=== PATIENT | female | born 2005 | race Caucasian/White ===

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

== ENCOUNTER → 2024-02-04 | Outpatient (CLI) | payer OTHER ==
[~2024-02-04] MED LIST changes: +ALBU2.5V10 INH; +CEFD1CAP9 PO; -CEFD300C41 PO; -KLON0.5T PO; +KLON0.5T8 PO; +PRENTAB9 PO
[2024-02-04 18:12] LABS: BASO % 0.4 % (0.0-1.0); EOS # 0.1 10^3/uL (0.0-0.5); EOS % 0.5 % (0.0-3.0); HEMATOCRIT 39.4 % (36.0-47.0); HEMOGLOBIN 13.2 g/dl (12.0-15.5); LYMPH # 2.6 10^3/uL (1.5-5.0); LYMPH % 27.7 % (24.0-44.0); MEAN CORPUSCULAR HEMOGLOBIN 30.1 pg (27.0-33.0); MEAN CORPUSCULAR HGB CONC 33.5 g/dl (32.0-36.5); MONO # 0.8 10^3/uL (0.0-0.8); MONO % 8.5 % (2.0-8.0); NEUTROPHILS # 5.9 10^3/uL (1.5-8.5); NEUTROPHILS % 62.5 % (36.0-66.0); PLATELET COUNT, AUTOMATED 332 10^3/uL (150-450); RED BLOOD COUNT 4.38 10^6/uL (4.00-5.40); WHITE BLOOD COUNT 9.5 10^3/uL (4.0-10.0)
[2024-02-04 18:27] LABS: HEMOGLOBIN A1c 4.9 % (4.0-6.0)
[2024-02-04 18:42] LABS: ALBUMIN 3.8 G/DL (3.2-5.2); ALKALINE PHOSPHATASE 74 U/L (46-116); ALT/SGPT 29 U/L (7.0-40); AST/SGOT 19 U/L (<34); BILIRUBIN,TOTAL 0.2 MG/DL (0.3-1.2); BLOOD UREA NITROGEN 8 MG/DL (9-23); CALCIUM LEVEL 9.7 MG/DL (8.5-10.1); CARBON DIOXIDE LEVEL 30 MMOL/L (20-31); CHLORIDE LEVEL 104 MMOL/L (98-107); CHOLESTEROL LEVEL 150 MG/DL (<200); CHOLESTEROL RISK RATIO 3.57 (<5); GLUCOSE, FASTING 72 MG/DL (60-100); HDL CHOLESTEROL 41.9 MG/DL (>40); LDL CHOLESTEROL 42.7 MG/DL (<100); NON-HDL-C 108.1 MG/DL; POTASSIUM SERUM 4.5 MMOL/L (3.5-5.1); SODIUM LEVEL 139 MMOL/L (136-145); TRIGLYCERIDES LEVEL 327 MG/DL (<150)
[2024-02-04 18:44] LABS: FREE T4 0.85 NG/DL (0.83-1.43); THYROID STIMULATING HORMONE 0.934 uIU/ML (0.48-4.17); TOTAL 25(OH) VITAMIN D 18.7 NG/ML (20.0-100.0)
== END ==
LOC: M PLALAB 15:49
PROVIDERS: ATTEND Physician Assistant
DX: Z00.00 Encounter for general adult medical examination without abnormal findings (principal); E66.9 Obesity, unspecified

== ENCOUNTER → 2025-01-23 | Outpatient (CLI) | payer OTHER ==
[~2025-01-23] MED LIST changes: +NAPR-1405 PO; -NAPR500T6 PO; +ONDA-282 PO; -ONDA4TAB6 PO
[2025-01-23 15:35] LABS: BASO % 0.4 % (0.0-1.0); EOS % 0.3 % (0.0-3.0); HEMATOCRIT 40.4 % (36.0-47.0); HEMOGLOBIN 13.2 g/dl (12.0-15.5); LYMPH # 2.7 10^3/uL (1.5-5.0); LYMPH % 24.9 % (24.0-44.0); MEAN CORPUSCULAR HEMOGLOBIN 29.5 pg (27.0-33.0); MEAN CORPUSCULAR HGB CONC 32.7 g/dl (32.0-36.5); MEAN CORPUSCULAR VOLUME 90.4 fl (80.0-96.0); MONO # 0.7 10^3/uL (0.0-0.8); MONO % 6.8 % (2.0-8.0); NEUTROPHILS # 7.2 10^3/uL (1.5-8.5); NEUTROPHILS % 67.2 % (36.0-66.0); PLATELET COUNT, AUTOMATED 327 10^3/uL (150-450); RED BLOOD COUNT 4.47 10^6/uL (4.00-5.40); WHITE BLOOD COUNT 10.7 10^3/uL (4.0-10.0)
[2025-01-23 15:39] LABS: ALBUMIN 3.8 G/DL (3.2-5.2); ALKALINE PHOSPHATASE 87 U/L (35-104); ALT/SGPT 17 U/L (7.0-40); AST/SGOT 14 U/L (<34); BILIRUBIN,TOTAL 0.3 MG/DL (0.3-1.2); BLOOD UREA NITROGEN 8 MG/DL (9-23); CALCIUM LEVEL 9.6 MG/DL (8.5-10.1); CARBON DIOXIDE LEVEL 28 MMOL/L (20-31); CHLORIDE LEVEL 107 MMOL/L (98-107); CREATININE FOR GFR 0.56 MG/DL (0.55-1.30); GLOMERULAR FILTRATION RATE > 90.0 (>60); GLUCOSE, FASTING 84 MG/DL (60-100); POTASSIUM SERUM 4.5 MMOL/L (3.5-5.1); SODIUM LEVEL 144 MMOL/L (136-145)
[2025-01-23 15:52] LABS: HEMOGLOBIN A1c 5.2 % (4.0-6.0)
== END ==
LOC: M PLALAB 12:07
PROVIDERS: ATTEND Student in an Organized Health Care Education/Training Program
DX: Z01.818 Encounter for other preprocedural examination (principal)

== ENCOUNTER 2025-02-27 18:14 | Emergency (ER) | payer MEDICAID, OTHER ==
[~2025-02-27] VITALS: Ht 160 cm; Wt 117.0 kg
[2025-02-27] MEDS ORDERED: ENOX40IN3 INJ (18:28)
[2025-02-27] MEDS ORDERED: OMEP40CA5 PO (18:28)
[2025-02-27] MEDS ORDERED: METH-1164 (18:28)
[2025-02-27] MEDS ORDERED: DULO1CAP6 PO (18:28)
[2025-02-27] MEDS ORDERED: CLON-589 PO (18:28)
[2025-02-27] MEDS ORDERED: ONDA-83 PO (18:28)
[2025-02-27] MEDS ORDERED: ETON68IM SC (18:30)
[2025-02-27] MEDS: GASTROGRAFIN SOLUTION 30ML PO SCH (19:39)
[2025-02-27 19:42] LABS: BASO % 0.6 % (0.0-1.0); EOS # 0.1 10^3/uL (0.0-0.5); EOS % 1.6 % (0.0-3.0); HEMATOCRIT 38.4 % (36.0-47.0); HEMOGLOBIN 12.9 g/dl (12.0-15.5); LYMPH % 38.8 % (24.0-44.0); MEAN CORPUSCULAR HEMOGLOBIN 30.1 pg (27.0-33.0); MEAN CORPUSCULAR HGB CONC 33.6 g/dl (32.0-36.5); MEAN CORPUSCULAR VOLUME 89.5 fl (80.0-96.0); MONO # 0.6 10^3/uL (0.0-0.8); NEUTROPHILS # 2.4 10^3/uL (1.5-8.5); NEUTROPHILS % 47.8 % (36.0-66.0); PLATELET COUNT, AUTOMATED 239 10^3/uL (150-450); RED BLOOD COUNT 4.29 10^6/uL (4.00-5.40)
[2025-02-27] MEDS: METOCLOPRAMIDE INJ 10MG/2ML VIAL IV ONE (19:44)
[2025-02-27] MEDS: NS (Normal Saline) 0.9% 1,000 ML IV ONE (19:44)
[2025-02-27] MEDS: ACETAMINOPHEN *IV* 1,000 MG in IV 1 EA IV ONE (19:47)
[2025-02-27 20:07] LABS: HCG, SERUM QUALITATIVE NEGATIVE (NEGATIVE); LIPASE 63 U/L (12-53)
[2025-02-27 20:17] LABS: ALBUMIN 3.8 G/DL (3.2-5.2); ALKALINE PHOSPHATASE 73 U/L (35-104); ALT/SGPT 27 U/L (7.0-40); AST/SGOT 22 U/L (<34); BILIRUBIN,DIRECT < 0.1 MG/DL (<0.4); BILIRUBIN,TOTAL 0.2 MG/DL (0.3-1.2); BLOOD UREA NITROGEN < 5 MG/DL (9-23); CALCIUM LEVEL 9.2 MG/DL (8.5-10.1); CARBON DIOXIDE LEVEL 27 MMOL/L (20-31); CHLORIDE LEVEL 107 MMOL/L (98-107); CREATININE FOR GFR 0.49 MG/DL (0.55-1.30); GLOMERULAR FILTRATION RATE > 90.0 (>60); GLUCOSE, FASTING 95 MG/DL (60-100); POTASSIUM SERUM 3.2 MMOL/L (3.5-5.1); SODIUM LEVEL 144 MMOL/L (136-145)
[2025-02-27] MEDS ORDERED: ISOVUE-370 76% 100ML VIAL As Ordered ONE (21:23)
[2025-02-27] MEDS ORDERED: DULO1CAP5 PO (22:42)
[2025-02-27] MEDS ORDERED: HOME MED LIST COMPLETE! XX SCH (22:45)
[2025-02-27 23:15] VITALS: BP 100/62; TEMP 98; O2SAT 98
[2025-02-27] MEDS ORDERED: REGL10TA6 PO (23:25)
== END 2025-02-27 23:37 | disposition home or self-care (01) ==
LOC: M ED 18:14
DX: R11.2 Nausea with vomiting, unspecified (principal); K21.9 Gastro-esophageal reflux disease without esophagitis; J45.909 Unspecified asthma, uncomplicated; F31.9 Bipolar disorder, unspecified; Z87.891 Personal history of nicotine dependence; Z79.899 Other long term (current) drug therapy
CPT/HCPCS: 74177; 80048; 80076; 83605; 83690; 84703; 85025; 93041; 96361; 96374; 96375; 99284; J0131; J2765; Q9963; Q9967

== ENCOUNTER → 2025-04-12 | Outpatient (REF) | payer OTHER ==
[~2025-04-12] MED LIST changes: +CLON-589 PO; +DULO1CAP5 PO; +DULO1CAP6 PO; +ENOX40IN3 INJ; +ETON68IM SC; +METH-1164; +OMEP40CA5 PO; +ONDA-83 PO; +REGL10TA6 PO
== END ==
LOC: M SFHCPLAZ 08:55
PROVIDERS: ATTEND Nurse Practitioner Family
DX: Z53.9 Procedure and treatment not carried out, unspecified reason (principal)

== ENCOUNTER → 2025-05-04 | Outpatient (CLI) | payer OTHER ==
[~2025-05-04] MED LIST changes: +PROZ10CA11 PO; -PROZ10CA7 PO; -PROZ20CA11 PO; +PROZ20CA12 PO
== END ==
LOC: M RAD 13:40
PROVIDERS: ATTEND Nurse Practitioner Family
DX: N28.1 Cyst of kidney, acquired (principal)

== ENCOUNTER → 2025-07-05 | Outpatient (REF) | payer OTHER | LOC: M SFHCPLAZ 15:03 | PROVIDERS: ATTEND Nurse Practitioner Adult Health | DX: J02.9 Acute pharyngitis, unspecified (principal) ==

== ENCOUNTER → 2025-08-03 | Outpatient (CLI) | payer OTHER ==
[~2025-08-03] MED LIST changes: +BUPR-363; -BUPR75TA5; +GASTROGRAFIN SOLUTION 30 ML ONE; +ISOVUE-370 76% 100 ML VIAL ONE
== END ==
LOC: M PLAIMG 11:37
PROVIDERS: ATTEND Physician Assistant Surgical
DX: K91.2 Postsurgical malabsorption, not elsewhere classified (principal); R10.9 Unspecified abdominal pain; R19.01 Right upper quadrant abdominal swelling, mass and lump; Z98.84 Bariatric surgery status; N20.0 Calculus of kidney; K42.9 Umbilical hernia without obstruction or gangrene; R59.0 Localized enlarged lymph nodes
CPT/HCPCS: 74177; Q9963; Q9967

== ENCOUNTER → 2025-08-15 | Outpatient (CLI) | payer OTHER ==
[~2025-08-15] MED LIST changes: -GASTROGRAFIN SOLUTION 30 ML ONE; -ISOVUE-370 76% 100 ML VIAL ONE; +PROHANCE 279.3MG/ML 15ML VIAL ONE; +PROHANCE 279.3MG/ML 5ML VIAL ONE
== END ==
LOC: M PLAIMG 07:25
PROVIDERS: ATTEND Nurse Practitioner Family
DX: R42 Dizziness and giddiness (principal); R51.9 Headache, unspecified